=== PATIENT | female | born 1980 | race Hispanic/Latino ===

== ENCOUNTER 2019-08-15 15:27 | Emergency (ER) | payer SELFPAY ==
[~2019-08-15] VITALS: Ht 165.1 cm; Wt 72.6 kg
[~2019-08-15 15:27] MED LIST: ADVIL200 MG PO; MOTRIN IB200 MG PO; PERCOCET 5-3251 EACH PO; PROCARDIA XL60 MG PO
[2019-08-15] MEDS ORDERED: PROMETHAZINE HC25 M1 PO (17:17)
== END 2019-08-15 17:34 | disposition home or self-care (01) ==
LOC: ED 15:27
DX: B34.9 Viral infection, unspecified (principal); R42 Dizziness and giddiness; Z91.041 Radiographic dye allergy status; Z88.0 Allergy status to penicillin
CPT/HCPCS: 80053; 84703; 85025; 96361; 96374; 99284-25; J2405; J7030

== ENCOUNTER 2019-12-22 19:21 | Emergency (ER) | payer SELFPAY ==
[~2019-12-22] VITALS: Ht 165.1 cm; Wt 72.6 kg
[~2019-12-22 19:21] MED LIST changes: +PROMETHAZINE HC25 M1 PO
[2019-12-22] MEDS ORDERED: PERCOCET 5-3251 EACH PO (21:40)
[2019-12-22] MEDS ORDERED: FLOMAX0.4 MG PO (21:40)
[2019-12-22] MEDS ORDERED: ONDANSETRON ODT8 MG PO (21:40)
== END 2019-12-22 22:05 | disposition home or self-care (01) ==
LOC: ED 19:21
DX: N13.2 Hydronephrosis with renal and ureteral calculous obstruction (principal); Z88.5 Allergy status to narcotic agent; Z88.8 Allergy status to other drugs, medicaments and biological substances; Z88.0 Allergy status to penicillin
CPT/HCPCS: 51701; 74176; 80053; 81001; 84703; 85025; 86900; 86901; 99284-25; J1170; J2405; J7030

== ENCOUNTER 2019-12-24 20:43 | Emergency (ER) | payer SELFPAY ==
[~2019-12-24] VITALS: Ht 165.1 cm; Wt 72.6 kg
[~2019-12-24 20:43] MED LIST changes: +FLOMAX0.4 MG PO; +ONDANSETRON ODT8 MG PO
--- OUTSIDE RECORDS SUMMARY | 2019-12-24 20:46 | XMS ---
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 Yared has no Care Guidelines for this patient. [place] VISIT COUNT (12 MO.) 3 [facility] [place]. TOTAL 3 NOTE: Visits indicate total known visits. ED/C VISIT TRACKING (12 MO.) 12/24/2019 20:44 [facility] [place] TYPE: Emergency COMPLAINT: - ABDOMINAL PAIN 12/22/2019 19:22 [facility] [place] TYPE: Emergency COMPLAINT: - ABDOMINAL PAIN/WEAKNESS 08/15/2019 15:28 [facility] [place] TYPE: Emergency COMPLAINT: - DIZZINESS DIAGNOSES: - Radiographic dye allergy status - Viral infection, unspecified - Dizziness and giddiness - Allergy status to penicillin INPATIENT VISIT TRACKING (12 MO.) No inpatient visits to display in this time frame [email or web address]
[2019-12-25] MEDS ORDERED: CEFPODOXIME PR200 MG PO (01:55)
== END 2019-12-25 02:26 | disposition home or self-care (01) ==
LOC: ED 20:43
DX: N12 Tubulo-interstitial nephritis, not specified as acute or chronic (principal); G43.909 Migraine, unspecified, not intractable, without status migrainosus; Z88.5 Allergy status to narcotic agent; Z88.0 Allergy status to penicillin; Z88.8 Allergy status to other drugs, medicaments and biological substances; Z79.899 Other long term (current) drug therapy
CPT/HCPCS: 74177; 80053; 81001; 83605; 83690; 83735; 84703; 85025; 96361; 99284-25; J0696; J1200; J1885; J2765; J7030; Q9967

== ENCOUNTER 2020-04-27 15:32 | Emergency (ER) | payer SELFPAY ==
[~2020-04-27] VITALS: Ht 165.1 cm; Wt 72.6 kg
[~2020-04-27 15:32] MED LIST changes: +CEFPODOXIME PR200 MG PO
== END 2020-04-27 18:12 | disposition home or self-care (01) ==
LOC: ED 15:32
DX: S00.83XA Contusion of other part of head, initial encounter (principal); Y04.8XXA Assault by other bodily force, initial encounter; Z88.8 Allergy status to other drugs, medicaments and biological substances; Z88.5 Allergy status to narcotic agent; Z88.0 Allergy status to penicillin
CPT/HCPCS: 70450; 72125; 80053; 81001; 84703; 85025; 96374; 99284-25; J1885

== ENCOUNTER 2020-10-11 02:07 | Emergency (ER) | payer SELFPAY ==
[~2020-10-11] VITALS: Ht 165.1 cm; Wt 72.6 kg
== END 2020-10-11 05:10 | disposition home or self-care (01) ==
LOC: ED 02:07
DX: R10.30 Lower abdominal pain, unspecified (principal); G43.909 Migraine, unspecified, not intractable, without status migrainosus; Z88.5 Allergy status to narcotic agent; Z88.0 Allergy status to penicillin
CPT/HCPCS: 51701; 74176; 80053; 81001; 83690; 84703; 85025; 99284-25

== ENCOUNTER 2021-08-16 09:48 | Inpatient (IN) | payer OTHER ==
[~2021-08-16] VITALS: Ht 165.1 cm; Wt 81.0 kg
--- NOTE | 2021-08-16 19:20 | NUR ---
BEDSIDE REPORT RECEIVED FROM OFFGOING RNDAPHNIE. TOOL HONING MACHINE SET UP OPERATOR AT BEDSIDE. ACTUARIAL TECHNICIAN WAITING TO SEE PT. CALL LIGHT IN PT'S REACH. NEEDS DENIED.
--- NOTE | 2021-08-16 19:31 | NUR ---
Patient arrived to the medical floor from ED department. Patient awake, alert and oriented x4. Patient reports lower back pain, 9/10. Vital signs taken at this time, oral temp down to 99.3f. Patient provided with dinner at this time. Oriented patient to room and call light.
--- NOTE | 2021-08-16 19:34 | NUR ---
Dr. Villalobos updated with the most recent positive toxicology results. No new orders obtained at this time.
--- NOTE | 2021-08-16 20:05 | NUR ---
BED ALARMING. THIS SEARCH ENGINE MARKETING STRATEGIST WENT IN TO THE ROOM PATIENT WAS SITTING ON THE TOILET STATED "I NEED TO PEE". PATIENT IS BACK IN BED. V/S AND I&O'S TAKEN AND CHARTED. CALL LIGHT AND SIDE TABLE WITHIN REACH. BED ALARM ON.
--- NOTE | 2021-08-16 20:13 | NUR ---
SHOE SEWING MACHINE OPERATOR AND TENDER WAS AWARE OF THE PATIENT'S TEMP.
--- NOTE | 2021-08-16 22:39 | NUR ---
PT UTLIZES CALL LIGHT, REQUESTS PRN PAIN MEDCIATION. PT ASSESSMENT COMPLETE. PT RATES PAIN 10/10 TO BACK AND HEADACHE. PRN ADMINISTERED, SEE EMAR. PT DENIES NAUSEA OR SOB. ABD TENDER TO PALPATION. BT'S ACTIVE. IV FLUSHED WITH 10 ML NS. WNL. ICE WATER REFILLED. PT VERY DROWSY AFTER PAIN MEDCIATION ADMINISTERED. PT DENIES FURTHER NEEDS. CALL LIGHT IN REACH. BED ALARM ACTIVE.
--- NOTE | 2021-08-17 00:28 | NUR ---
PT RESTING IN BED WITH EYES CLOSED. RESPIRATIONS EVEN AND UNLABORED. PT APPEARS TO BE SLEEPING. CALL LIGHT IN REACH.
--- NOTE | 2021-08-17 01:20 | NUR ---
PT ASSESSMENT COMPLETE. PT UP TO BATHROOM AND BACK TO BED WITH SBA. PT TOLERATED WELL. RATES PAIN 7/10 TO ABD, SLIGHT HEADACHE. ABD TENDER TO PALPATION. BT'S ACTIVE. IVF INFUSING ORDERED. PT PROVIDED WITH ROCK HUDDLE[place]ON PERREQUEST. FURTHER NEEDS DENIED AT THIS TIME. CALL LIGHT IN REACH.
--- NOTE | 2021-08-17 02:29 | NUR ---
PT UTILIZES CALL LIGHT, REQUESTS PRN PAIN MEDICATION. PT REPORTS PAIN 7/10 TO ABD, ALSO REPORTS HEADACHE. PRN ADMINISTERED, SEE EMAR. PT DENIES FURTHER NEEDS AT THIS TIME. CALL LIGHT IN REACH.
--- NOTE | 2021-08-17 03:17 | NUR ---
PT RESTING IN BED WITH EYES CLOSED. RESPIRATIONS EVEN AND UNLABORED. PT APPEARS TO BE SLEEPING. CALL LIGHT IN REACH.
--- NOTE | 2021-08-17 06:38 | NUR ---
PT UTILIZES CALL LIGHT, REQUESTS TO USE BATHROOM AND FOR ADDITIONAL PAIN MEDICATION. PT RATES PAIN 10/10 TO PELVIS AND REPORTS HEADACHE. PT ADMINISTERED. PT UP TO BATHROOM AND BACK TO BED WITH LIGHT BULB TESTER ASSISTANCE. BLOOD DRAW OBTAINED FROM PERIPHERAL IV, PT REFUSES TO HAVE BLOOD DRAWN. PT DENIES FURTHER NEEDS AT THIS TIME. PT RESTING SNORING AUDBILY AUTOMOTIVE SERVICE DIRECTOR EXITS ROOM. CALL LIGHT INR EACH.
--- NOTE | 2021-08-17 06:39 | NUR ---
URINE SAMPLE SENT.
--- NOTE | 2021-08-17 07:22 | NUR ---
REPORT FROM NIGHT NURSE KRYSTIN.
--- NOTE | 2021-08-17 08:30 | NUR ---
NORMAN DO INTO EVALUATE PT. HEART TONES BY DOPPLER 170'S. MOVEMENT HEARD BY DOPPLER.
--- NOTE | 2021-08-17 09:07 | NUR ---
MORNING ASSESSMENT ATTEMPTED, PATIENT ANNOYED THAT LIGHT WAS ON FOR ASSESSMENT, LIGHT TURNED OFF. PATIENT RATED HEADACHE 7/10 AND ATTRIBUTES THIS TO MAGNESIUM AND POTASSIUM REPLACEMENT. IVF TURNED OF, PATIENT IS MAD THAT THE IV PUMP BEEPS AND WILL NOT KEEP HER ARM STRAIGHT. PATIENT TOOK MORNING ASPRIN AND VITAMIN, REFUSED LOVENOX, FLOMAX AND PEPCID, SAYING, "THOSE THINGS ARE STUPID." PLAN TO INFUSE ROCEPHIN AT NOON IF PATIENT IS WILLING.
--- NOTE | 2021-08-17 09:46 | NUR ---
PATIENT GIVEN 1MG OF IV DILAUDID FOR 10/10 HEADACHE. PATIENT REFUSED PERCOCET, KNOWS THAT MORPHINE IS AVAILABLE BUT DECLINED TO TAKE IT AT THIS TIME.
--- NOTE | 2021-08-17 10:21 | NUR ---
PATIENT IN BED RESTING WITH EYES CLOSED. VITALS AND I&O'S CHARTED. TEMP HIGH, RN NOTFIIED. CALL LIGHT IN REACH. NO FURTHER NEEDS AT THIS TIME.
--- NOTE | 2021-08-17 10:37 | NUR ---
PATIENT RESTING IN BED. PATIENT AGREED TO TAKE PO MAGNESIUM WITH A DOSE OF IMITREX. PATIENT CONTINUES TO REFUSE IVF
--- NOTE | 2021-08-17 11:17 | NUR ---
PATIENT TO GO TO IMAGING FOR RETROPERITONEAL ULTRASOUND. PATIENT CONTINUES TO BE SALINE LOCKED.
--- NOTE | 2021-08-17 12:07 | NUR ---
PATIENT IS OKAY WITH IVF/ROCEPHIN ABX INFUSING AT THIS TIME. PATIENT REPORTED RESOLUTION OF HEADACHE. PATIENT IMMEDIATELY BACK TO SLEEP.
--- NOTE | 2021-08-17 14:08 | NUR ---
PATIENT UP TO BATHROOM TO VOID WITH SBA, GIVEN ONE PERCOCET FOR 6/10 HEADACHE. PATIENT ATE 20% OF LUNCH AND BACK TO BED.
--- NOTE | 2021-08-17 14:17 | NUR ---
PATIENT IN BED RESTING WITH EYES CLOSED. VITALS AND I&O'S CHARTED. CALL LIGHT IN REACH. NO FURTHER NEEDS AT THIS TIME.
--- NOTE | 2021-08-17 14:59 | NUR ---
PATIENT GIVEN 1MG OF IV DILAUDID FOR 6/10 LEFT SIDE PAIN. PATIENT HAS BEEN COMPLIANTE WITH MEDICATIONS AND IVF THIS AFTERNOON.
--- NOTE | 2021-08-17 16:43 | NUR ---
PATIENT IS RESTING IN BED, REPORTS THAT SHE IS COMFORTABLE AT THIS TIME.
--- NOTE | 2021-08-17 17:22 | NUR ---
PATIENT HAS DONE WELL TODAY, INITIALLY RESISTANT AND REFUSING SOME TREATMENTS THIS MORNING. THIS EVENING, HER PAIN IS UNDER CONTROL, APPETITE IS ADEQUATE, PATIENT HAS BEEN APPROPRIATE IN HER INTERACTIONS. HEART TONES DONE THIS MORNING BY C NURSE. PATIENT HAS USED CALL LIGHT AND RESTED IN BED THROUGHOUT THE DAY.
--- NOTE | 2021-08-17 18:12 | NUR ---
PATIENT GIVEN TWO TYLENOL AND IMITREX FOR 10/10 HEADACHE.
--- NOTE | 2021-08-17 18:25 | NUR ---
PATIENT IN BED RESTING WITH EYES CLOSED. VITALS AND I&O'S CHARTED. FRESH WATER GIVEN. CALL LIGHT IN REACH. NO FURTHER NEEDS AT THIS TIME.
--- NOTE | 2021-08-17 20:09 | NUR ---
PT ASSESSMENT COMPLETE. PT UTILIZES CALL LIGHT, REQUESTS PRN PAIN MEDICATION. SURTASS ANALYST TO ROOM PT REQUESTS TO USE THE BATHROOM. PT TO BATHROOM AND BACK TO BED WITH SBA. PT BEGINS LOUDLY COMPLAINING OF PAIN TO RAC IV SITE. STATES THAT THE NEEDLE IS PULLING OUT OF HER ARM. EDUCATION PROVIDED REGARDING IV. PT YELLING THAT SHE DOESN'T CARE. SHE WANTS THE IV DC'D. IV DC'D BY THIS SURTASS ANALYST AT THIS TIME. L AC IV FLUSHED WITH 10 ML NS. GOOD BLOOD RETURN NOTED. PT RATES PAIN 10/10 HEADACHE AND PELVIC PAIN. PRN ADMINISTERED, SEE EMAR. PT DENIES NAUSEA OR SOB. ABD TENDERNESS UPON PALPATION. BT'S ACTIVE. PT REQUESTS ICE AND ROCK CRACKERS. PT DENIES FURTHER NEEDS AT THIS TIME. RESTING WITH EYES CLOSED. CALL LIGHT IN REACH.
--- NOTE | 2021-08-17 21:44 | NUR ---
CALL LIGHT ANSWERED. SBA TO RESTROOM FOR VOID. pt VERBALIZES UNDERSTANDING TO USE CALL LIGHT WHEN FINISHED.
--- NOTE | 2021-08-17 22:42 | NUR ---
CALL LIGHT ANSWERED. SBA TO RESTROOM. IVF INFUSING WNL. pt STATES WILL USE CALL LIGHT WHEN FINISHED.
--- NOTE | 2021-08-18 00:16 | NUR ---
PT UTILIZES CALL LIGHT MULTIPLE TIMES REQUESTING PRN PAIN MEDCIATION. ADMINISTERED AT EARLIEST AVAILABILITY. MED EDUCATION PROVIDED. PT RATES PAIN 10/10 TO HEADACHE, PELVIS, AND BACK. ICE WATER REFILLED PER PT REQUEST. PT DENIES FURTHER NEEDS AT THIS TIME. CALL LIGHT IN REACH.
--- NOTE | 2021-08-18 02:06 | NUR ---
pt HEARD YELLING FROM NURSES STATION. USING CALL LIGHT STATING "THIS STUPID MEDICATION DOESN'T WORK". IN ROOM WITH PRIMARY RN. pt STATES "I'M ABOUT TO WALK OUT OF HERE AND GO BACK TO THE ER". EDUCATION PROVIDED ON PO PAIN MEDICATIONS, PLAN OF CARE. TEMPERATURE IN ROOM ADJUSTED. URINE EMPTIED FROM HAT. CPOX IN PLACE. PRIMARY RN IN ROOM ADMINISTERING MEDICATION.
--- NOTE | 2021-08-18 02:48 | NUR ---
PT ASSESSMENT COMPLETE. PT UTILIZES CALL LIGHT, STATES THAT SHE WANTS TO SPEAK TO THE DOCTOR. REPORTS THAT HER PAIN MEDICATION IS INEFFECTIVE. AUTO PARKER AND COOK HELPER TO ROOM. MEDICATION EDUCATION PROVIDED. MEDICATION TIMING AND AVAILABILITY DISCUSSED. PRN ADMINISTERED, SEE EMAR. PT RATES PAIN, HEADACHE, 10/10. OFFERED COOL AND/OR WARM COMPRESS. PT DECLINES. DISCUSSION REGARDING CAFFIENE RELATED HEADAHCES, PT REQUESTS COFFEE. PROVIDED. PT DENIES FURTHER NEEDS AT THIS TIME. CALL LIGHT IN REACH.
--- NOTE | 2021-08-18 02:56 | NUR ---
PT ROUNDING. PT UP TO BATHROOM WITH CROSSING FLAGMAN ASSISTANCE. PT REPORTS THAT HEADACHE IS IMPROVED AT THIS TIME. REQUESTS ADDITIONAL COFFE AND ICE CHIPS. FURTHER NEEDS DENIED AT THIS TIME. CALL LIGHT IN REACH.
--- NOTE | 2021-08-18 03:00 | NUR ---
SBA TO THE BATHROOM AND BACK TO BED. ICE WATER AND COFFEE PROVIDED PER PATIENT. NO OTHER NEEDS AT THIS TIME.
--- NOTE | 2021-08-18 07:00 | NUR ---
Report received from Liliana ESPARZA. Pt calls and requests "something for headache". ISAIAS Ford medicates with PRN percocet. No further needs at this time. Call light in reach, will continue plan of care.
--- NOTE | 2021-08-18 08:05 | NUR ---
Scheduled medications administered along with PRN IV dilaudid. Pt cooperative with care plan at this time. IVF infusing WNL. Assessment complete. FBC ISAIAS Rodriguez in room to assess FHR. Dr Villalobos also at bedside to round on patient. No further needs at this time, call light in reach.
--- NOTE | 2021-08-18 08:16 | NUR ---
NORMAN DO AT BEDSIDE WITH THIS RN. HEART TONES BY DOPPLER 160 BPM.
--- NOTE | 2021-08-18 09:06 | NUR ---
PATIENT IN BED AT THIS TIME GOING OVER MRI FORM WITH CHARGE NURSE. VITALS AND I&O'S CHARTED. CALL LIGHT IN REACH. NO FURTHER NEEDS AT THIS TIME.
--- NOTE | 2021-08-18 10:18 | NUR ---
Rounded on patient who is resting in bed, she states no needs, states "feeling hot", temperature in room adjusted and fan provided. No further needs. IVF infusing WNL. NPO at this time awaiting procedure at 1300.
--- NOTE | 2021-08-18 11:07 | NUR ---
Call light answered, pt assisted SBA to restroom. IVF infusing WNL. Pt reports 07/21 "head/eye ache", PRN imitrex administered. Pt states no further needs. Calm and cooperative with POC. Lights dim, call light in reach.
--- NOTE | 2021-08-18 12:27 | NUR ---
Pt medicated with PRN dilaudid and IV ABX infusing. Pt states no needs at this time. Call light in reach.
--- NOTE | 2021-08-18 13:10 | NUR ---
PATIENT TO MRI AT 1300.
--- NOTE | 2021-08-18 14:45 | NUR ---
IVF infusing WNL. Pt resting in bed watching tv. She states no needs at this time, feeling "okay". Call light in reach.
--- NOTE | 2021-08-18 14:50 | NUR ---
IV pump alarming, resolved, attempted wrapping with cloth/coban to prevent bending in AC
--- NOTE | 2021-08-18 16:55 | NUR ---
Pt assisted to restroom with SBA. IVF infusing WNL. Pt states no needs at this time, feeling "tired". Call light in reach
--- NOTE | 2021-08-18 17:20 | NUR ---
Pt medicated with 1mg dilaudid for 6/10 pain. Pt sitting up in bed eating dinner. Discussed POC with Dr Villalobos.
--- NOTE | 2021-08-18 17:32 | NUR ---
Dr. Villalobos in to see patient, patient will need IV antibiotics for 10 days, discussed with Dr. Villalobos that patient has said that she would go into a center where she could be in a drug free environment. Dr. Villalobos in agreement with this plan, will start working on placement options with Dr. Villalobos per his recommendations and patient tomorow.
--- NOTE | 2021-08-18 17:53 | NUR ---
Pain managed well this shift. MRI shows renal mass- Dr Villalobos anticipates +/- 10 days of IV ABX. Awaiting new orders. tolerating regular diet. HRR, LSC, BTA, VQS. Pt A+O, calls appropriately today. CM working with patient for potential inpatient rehab tx post DC.
--- NOTE | 2021-08-18 19:56 | NUR ---
RECEIVED REPORT FROM DAY SHIFT RN. PATIENT IS RESTING IN BED WITH EYES CLSOED, RR 18. CALL LIGHT IN REACH.
--- NOTE | 2021-08-18 20:25 | NUR ---
CALL LIGHT ANSWERED. SBA. PATIENT GOT UP TO USE THE RESTROOM. PATIENT IS BACK IN BED. PATIENT ASKED FOR SNACK ROCK CRACKERS AND ORANGE JUICE. PROVIDED.
--- NOTE | 2021-08-18 21:05 | NUR ---
PATIENT ASSESMENT COMPLETED. VITALS TAKEN AND RECORDED. INTAKE AND OUTPUT RECORDED. PATIENT RATES PAIN AT AN 8/10 IN HER LOWER BACK, PRN PAIN MEDICATION GIVEN PER ORDER. PATIENT REPORTS DUGAN, PRN MEDICATION GIVEN PER ORDER. PATIENTS IV INFUSING PER ORDER. SNACK AND FRESH ICE WATER PROVIDED. PATIENT DENIES ANY FURTHER NEEDS. CALL LIGHT IN REACH.
--- NOTE | 2021-08-18 22:31 | NUR ---
PATIENT UP TO THE RESTROOM. PATIENT ABLE TO VOID. PATIENT IS BACK IN BED RESTING. IV INFUSING PER ORDER. PATIENT RATES PAIN AT A 5/10, AND DENIES THE NEED FOR INTERVENTION AT THIS TIME. PATIENT STATED "MY HEADACHE IS GONE AND MY PAIN IS IMPORVING". PATIENT DENIES ANY FURTHER NEEDS. CALL LIGHT IN REACH.
--- NOTE | 2021-08-18 23:29 | NUR ---
PATIENT UP TO THE BR A SBA. PATIENT IS BACK IN BED RESTING. SNACK PROVIDED. NO FURTHER NEEDS NOTED. CALL LIGHT IN REACH.
--- NOTE | 2021-08-19 00:26 | NUR ---
call light answered. sba to bathroom and back to bed. warm blanket provided. primary rn notified patient asked the time she can have pain meds.
--- NOTE | 2021-08-19 00:46 | NUR ---
PATIENT RATES PAIN AT A 7/10 IN HER LOWER BACK. PRN PAIN MEDICATION GIVEN PER ORDER. FRESH ICE WATER PROVIDED. NO FURTHER NEEDS NOTED. CALL LIGHT IN REACH.
--- NOTE | 2021-08-19 01:23 | NUR ---
PATIENT RATES PAIN AT A 10/10, PRN PAIN MEDICATION GIVENT PER ORDER. PATIENT IS RESTING IN BED. OFFERED PATIENT WARM PACK, Pt REFUSED. PATIENT DENIES ANY FURTHER NEEDS. CALL LIGHT IN REACH.
--- NOTE | 2021-08-19 03:07 | NUR ---
PATIENT CALLED TO USE THE RESTROOM. SBA. PATIENT IS BACK IN BED. COFFEE AND ROCK CRACKERS PROVIDED PER PATIENT.
--- NOTE | 2021-08-19 05:09 | NUR ---
PATIENT RATES PAIN AT A 7/10 IN HER LEFT FLANK AND REPORTS A HEADACHE. PRN MEDICCATION GIVEN PER ORDER. PATIENTS IV FLUSHED AND SL PER ORDER. VITALS TAKEN AND RECORDED. INTAKE AND OUTPUT RECORDED. PATIENT PROVIDED WITH FRESH ICE WATER. NO FURTHER NEEDS NOTED. CALL LIGHT IN REACH.
--- NOTE | 2021-08-19 06:00 | NUR ---
LAB IN ROOM. PATIENT IS YELLING "GET OUT". ATTEMPTED TO DRAW BLOOD FROM PATIENTS IV WITH NO BLOOD RETURN. EDUCATED PATIENT ON THE IMPORTANCE OF SENDING BLOOD TO THE LAB. PATIENT STATED "I DONT FUCKING CARE, I DONT WANT MY BLOOD TAKEN BY RETARDS". PATIENT EDUCATED THAT WE DO NOT CALL NAMES AND THAT IT IS NOT OK TO YELL AT STAFF. UNABLE TO DRAW LABS AT THIS TIME.
--- NOTE | 2021-08-19 06:52 | NUR ---
PATIENT GIVEN PRN PAIN MEDICATION FOR 7/10PAIN IN HER LEFT FLANK. PATIENTS BLOOD DRAWN AND SENT TO LAB. NO FURTHER NEEDS NOTED. CALL LIGHT IN REACH.
--- NOTE | 2021-08-19 07:00 | NUR ---
Report received from Kushal ESPARZA. Pt resting in bed with cloth over eyes. Resp even and unlabored. No needs identified at this time, call light in reach. Will continue plan of care.
--- NOTE | 2021-08-19 08:18 | NUR ---
Discussed pt medications with Dr Villalobos, no changes at this time
--- NOTE | 2021-08-19 08:26 | NUR ---
Scheduled medications administered and assessment complete. Pt resting in bed with eyes closed. Pt ambulates IND to BR to void. She states no needs at this time. Pt updated regarding POC and is agreeable. Assessment WNL. Call light in reach.
--- NOTE | 2021-08-19 12:00 | NUR ---
Scheduled ABX infusing. Pt agitated at this time, and she states that "wants to go home, how much longer do I have to be here", plan of care reviewed and pt continues to be irritable. She states she wants to "go home and take a bath and walk around", encouraged to shower and walk in hallway with this RN. Pt medicated with prn percocet and imitrex, she is agreeable to staying in hospital at this time. Dr Villalobos updated as well on pt condition and new orders for PRN flexeril received.
--- NOTE | 2021-08-19 13:00 | NUR ---
Pt medicated with PRN dilaudid. IV ABX complete. She is calm and cooperative at this time. No further needs.
--- NOTE | 2021-08-19 13:53 | NUR ---
HEART TONES BY DOPPLER: 149-162 BPM. PT RESTS IN BED. NO PAIN OR NEEDS VOICED.
--- NOTE | 2021-08-19 15:31 | NUR ---
Patient requesting that we have someone go to her residence at [address], [place] to go and turkey picker her cell phone and her purse and bring it to the hospital. Contacted [place] police and provided name and address. They stated that this is out of their jurisdiction and referred me to the [facility], I have spoken with staff at the [facility], and provided the information. They have stated that they will relay the message and get back to us. I did leave them the phone number for case management office.
--- NOTE | 2021-08-19 16:39 | NUR ---
Walked with patient to outside patio for fresh air, walked in hallway. Fresh ice water provided. Pt back to room and states no needs.
--- NOTE | 2021-08-19 17:11 | NUR ---
Discussed updated POC with Dr Marino and Dr Villalobos.
--- NOTE | 2021-08-19 17:48 | NUR ---
One time dose IV rocephin administered, pt agreeable, has no needs at this time
--- NOTE | 2021-08-19 18:31 | NUR ---
Dr Cabello roundjodie on patient, updated on patient condition and discussed POC.
--- NOTE | 2021-08-19 19:40 | NUR ---
fresh fluids given on requests, in bed respositionned
--- NOTE | 2021-08-19 20:00 | NUR ---
warm pad for back given, walking in room, went back to bed. respositioned self, no requests for meds at this time
--- NOTE | 2021-08-19 20:30 | NUR ---
@2020 THIS RM ANSWERED PT CALL LIGHT, SHE WAS YELLING, I NEED MY FUCKING NURSE, I NEED MY PAIN MEDICATIONS, I HAVE BEEN CALLING FOR OVER AN HOUR, I AM LEAVING, THIS RN HEARING SOUNDS OF INCREASED NOISE IN THE ROOM. TOLD PT I AM ON THE WAY, SHE REPLIED I AM LEAVING. THIS RN TO ROOM BY 2021, PT DRESSED, SIGNS OF SL DESTRUCTION NOTED IN THE ROOM, PT YELLING, VERY EXCITEDLY TALKING RAPID I AM LEAVING, TAKE THIS IV OUT, OR "I WILL". ENCOURAGED PT TO ALLOW THIS RN TO GET HER PRIMARY RN. PT SAT ON THE CHAIR. REYES AND THIS RN TO PT ROOM, HOWEVER, SHE WAS NEARLY TO THE CARPET TOWARD [facility] IV INTACT. REYES RAN TO PT, WHILE THIS RN CALLED MILLSTONE CLEANER @2024.
--- NOTE | 2021-08-19 20:30 | NUR ---
pt walked out of room, fully dressed, wound not stop when called, walked outside and asked to come back to dc iv SL. cooperative, increaed anxiety, hyperverbal, fidgetty. Documentation Coordinator came and talk to pt when she got back inside and sat down by fireplace. SL dc'd by supervisor costuming. Pt refised to sign AMA form, walked out, alert and oriented
--- NOTE | 2021-08-19 20:33 | NUR ---
dr jeffrey notified via phone by leather products supervisor about pt not listening, agitation, screaming and not wanting to stay even after many explanations. and leaving AMA, refusing to sign form
--- NOTE | 2021-08-22 10:33 | HP ---
[facility] [address], [place] [address] Signed ADMISSION DATE: 08/16/2021 CHIEF COMPLAINT: Left lower quadrant pain in . HISTORY OF PRESENT ILLNESS: Ms. Sepulveda is a 40-year-old G6, P4, x4 female, who presented to the emergency department complaining of low back pain. LMP March 28 with no care. She is planning on seeing Dr. Joseph for her . history is complicated by x4, history of severe preeclampsia with delivery at 29 weeks in her last and methamphetamine use in the past reportedly. The patient reports that she developed [place] two [place] that progressed in severity. Yesterday, she felt unwell and painful and this morning presented to the emergency department. Reports left lower quadrant pain radiating to her flank down to her groin and down her leg. She reports no vaginal discharge, scant amount of spotting yesterday. She reports no gross hematuria. In the emergency department, she developed a fever of 102.9, but was initially afebrile. Again, she has had no care to this point. PAST MEDICAL HISTORY: 1. History of severe preeclampsia with delivery at 29 weeks in her last . 2. Chronic hypertension, not currently on any medications. 3. History of methamphetamine use with overdose in February of 2021. PAST SURGICAL HISTORY: x4. MEDICATIONS: None. ALLERGIES: Penicillin, rash. Codeine, hives. SOCIAL HISTORY: The patient denies ETOH, tobacco, or drug use. FAMILY HISTORY: Noncontributory. PHYSICAL EXAMINATION: VITAL SIGNS: T-max 102.9, pulse 109, respiratory rate 29, blood pressure 154/93, SaO2 Electronically Signed By: KATT NORMAN DO 08/22/21 1033 PATIENT NAME: CHERI SEPULVEDA HISTORY AND PHYSICAL DATE OF : 76 REPORT #: [id number] PHYSICIAN: KATT NORMAN DO PCP: NO PRIMARY CARE PHYSICIAN REPORT IS CONFIDENTIAL AND NOT TO BE RELEASED WITHOUT AUTHORIZATION [facility] [address], [place] [address] Signed 98%. GENERAL: The patient is a 40-year-old female lying in hospital bed. Appears older than stated age. She appears in some discomfort lying on her left side. HEENT: Normocephalic, atraumatic. NECK: Supple. Trachea midline with no lymphadenopathy or thyromegaly. HEART: Regular rate and rhythm with borderline tachycardia with no murmurs or rubs. LUNGS: Clear to auscultation bilaterally. ABDOMEN: Soft, nondistended, with gravid uterus palpated just above the pubic symphysis. There is significant discomfort just above the pubic symphysis, but no guarding or rebound in the other quadrants. There is significant flank pain to percussion on the left. Pelvic deferred. EXTREMITIES: No edema. Ultrasound demonstrates IUP at 15 weeks two days with a heart rate of 189 and cervical length 3.5 cm with an anterior placenta. EKG normal. WBCs 7.2, hemoglobin 10.8, platelets 142. Sodium 132, potassium 3.0, chloride 100, CO2 of 25, BUN 6, creatinine 0.62, glucose 152, lactic acid 1.6, AST 19, ALT 20, quant hCG 39,684. Urine demonstrates proteinuria, blood, leuk esterase but no nitrites. Urine also demonstrates amorphous crystals and bacteria. Urine and blood cultures pending. Toxicology screen positive for opioids, which could represent morphine which was given in the emergency department but is also positive for methamphetamine and marijuana. She is negative for coronavirus, influenza A and B and RSV. ASSESSMENT: 1. Intrauterine at 15 weeks gestation. 2. Pyelonephritis status post Rocephin in the emergency department. 3. Nephrolithiasis with amorphous crystals on urine microscopy. 4. History of severe preeclampsia. 5. History of x4. 6. Methamphetamine use. PLAN: We will admit the patient to Med-Surg for care of her pyelonephritis and nephrolithiasis. We will check A1c, urine protein creatinine ratio and labs. We will start ASA 162 mg p.o. daily as well as vitamins given her history of and history of severe preeclampsia. Chest x-ray was ordered despite her status due to tachypnea. The patient will receive Rocephin q. 24 hours until afebrile, and then we will anticipate discharge home on oral antibiotics with close followup with Dr. Joseph. We will also treat nephrolithiasis with Flomax 0.4 mg p.o. daily, IV fluids, half-normal saline with 20 mEq of potassium with hypokalemia noted on her labs as well as opioids for pain control. We will perform daily Dopplers to assure viability. We will coordinate NIPT and remainder of routine care. All Electronically Signed By: KATT NORMAN DO 08/22/21 1033 PATIENT NAME: CHERI SEPULVEDA HISTORY AND PHYSICAL DATE OF : 76 REPORT #: [id number] PHYSICIAN: KATT NORMAN DO PCP: NO PRIMARY CARE PHYSICIAN REPORT IS CONFIDENTIAL AND NOT TO BE RELEASED WITHOUT AUTHORIZATION [facility] [address] [place] [address] Signed questions were answered to the best of my ability and the patient's apparent satisfaction. DO LANDY Lewis/JEM /[id number] Copies: ~ Electronically Signed By: KATT NORMAN DO 08/22/21 1033 PATIENT NAME: CHERI SEPULVEDA HISTORY AND PHYSICAL DATE OF : 76 REPORT #: [id number] PHYSICIAN: KATT NORMAN DO PCP: NO PRIMARY CARE PHYSICIAN REPORT IS CONFIDENTIAL AND NOT TO BE RELEASED WITHOUT AUTHORIZATION
== END 2021-08-19 20:30 | disposition left against medical advice (07) | DRG 831 ==
LOC: ED 09:48 → MS 18:31
PROVIDERS: ADMIT Obstetrics & Gynecology; ATTEND Obstetrics & Gynecology
DX: O98.812 Other maternal infectious and parasitic diseases complicating pregnancy, second trimester (principal); A41.51 Sepsis due to Escherichia coli [E. coli]; O23.02 Infections of kidney in pregnancy, second trimester; O99.322 Drug use complicating pregnancy, second trimester; Z20.822 Contact with and (suspected) exposure to COVID-19; Z3A.15 15 weeks gestation of pregnancy; N20.0 Calculus of kidney; E87.6 Hypokalemia; R51.9 Headache, unspecified; O99.282 Endocrine, nutritional and metabolic diseases complicating pregnancy, second trimester; F15.10 Other stimulant abuse, uncomplicated; Z88.0 Allergy status to penicillin; Z88.5 Allergy status to narcotic agent; Z88.8 Allergy status to other drugs, medicaments and biological substances
CPT/HCPCS: 36415; 71045; 74183; 76770; 76815; 76817; 80048; 80053; 81001; 82570; 83605; 84156; 84702; 85025; 85027; 86762; 86780; 86803; 86850; 86900; 86901; 87040; 87088; 87340; 87502; 87536; 93005; 93010; 94762; 96361; 96365; 96375; 96376; 99285-25; A9270; A9579; C9803; J0696; J1170; J1650; J2270; J3480; J7030; U0003

== ENCOUNTER 2022-02-02 04:30 | Inpatient (IN) | payer OTHER ==
[~2022-02-02] VITALS: Ht 165.1 cm; Wt 101.0 kg
--- NOTE | ~2022-02-02 | OR ---
[facility] [address] [place], [place] [address] Draft DATE OF OPERATION: 02/02/2022 SURGEON: Katt Villalobos DO PREOPERATIVE DIAGNOSES: 1. Intrauterine at 39 weeks gestation. 2. History of prior x4. 3. Preeclampsia with severe features with HELLP syndrome. 4. Noncompliance. 5. Thrombocytopenia. POSTOPERATIVE DIAGNOSES: 1. Intrauterine at 39 weeks gestation. 2. History of prior x4. 3. Preeclampsia with severe features with HELLP syndrome. 4. Noncompliance. 5. Thrombocytopenia. 6. Intraoperative hypotension. PROCEDURE PERFORMED: Repeat low transverse delivery with bilateral tubal ligation. ANESTHESIA: General. ASSISTANTS: Lawson Joseph MD with Heather Scott DO, second machine operator assistant. ESTIMATED BLOOD LOSS: 400 mL. INTRAOPERATIVE COMPLICATIONS: Hypotension requiring vasopressin and epinephrine. DRAINS: Sosa to gravity. INTRAOPERATIVE FINDINGS: Delivery of viable female in the JODEE position with no nuchal via repeat low transverse section with thick particulate meconium. Very thin lower uterine PATIENT NAME: CHERI SUTTON OPERATIVE REPORT DATE OF : 76 REPORT #: [id number] PHYSICIAN: KATT VILLALOBOS DO (JD) PCP: NO PRIMARY CARE PHYSICIAN REPORT IS CONFIDENTIAL AND NOT TO BE RELEASED WITHOUT AUTHORIZATION [facility] [address] [place] [id number] Draft segment with a uterine window noted. Normal tubes and ovaries bilaterally. Some omental adhesions to the anterior peritoneum. INDICATIONS: Ms. Sutton is a 41-year-old G6, P4, x4 female at 39 weeks gestation by 15 week ultrasound, who presented to complaining of worsening edema and visual changes with blurry vision. is quite complicated with polysubstance abuse including fentanyl and methamphetamines, history of prior , history of preeclampsia with HELLP syndrome and prior pregnancies with HELLP syndrome diagnosed one month ago with noncompliance. The patient had been attempted to be contacted multiple times and refused to continue her OB care until this morning. She did leave A after being diagnosed with HELLP syndrome one month ago. Please see notes for details. The patient was admitted and noted to have blood pressures in severe range 190s/100s and received labetalol with improvement in her blood pressure, not severe range. The patient did receive one oral dose of Procardia as well. The patient did develop some hypotension preoperatively and some bradycardia. She was consented for repeat low transverse delivery with tubal ligation. Risks, benefits, and alternatives were discussed in detail with the patient. The patient understands and wished to proceed with the procedure. DESCRIPTION OF PROCEDURE: The patient was taken to the operating room where a time-out was performed to confirm correct patient, correct procedure. The patient has a history of penicillin allergy and she received clindamycin 900 mg and gentamicin 5 mg/kg. Given some hypotension, decision was made to proceed with under general anesthetic to avoid worsening of hypotension. A Sosa catheter was inserted and the patient received tranexamic acid 1 g IV. General anesthesia was adequately established and a Pfannenstiel skin incision was made using a surgical scalpel through her prior Pfannenstiel incision. Incision was carried down to the fascia where the fascia was nicked in the midline and fascial incision was extended bilaterally using curved Goodman scissors. The rectus was grasped with Zeus's, elevated, and the underlying rectus muscle dissected bluntly and sharply. The rectus was divided in the midline using blunt sharp dissection. Very thin lower uterine segment was identified with the uterine window. An Rao self retractor was placed. Hysterotomy was then performed using a surgical scalpel with thick particulate meconium noted. The surgeon's hand was placed in the uterine cavity. The head elevated and delivered with the assistance of fundal pressure. No nuchal cord was identified. was vigorous and cried at delivery. Cord was doubly clamped and cut. The handed to the waiting pediatric team for further care. Cord blood was obtained for blood gases. The placenta was then expressed intact with a centrally inserted three-vessel cord. Bleeding was scant, although the uterus was somewhat boggy. The patient received Pitocin per protocol. The uterine cavity was cleared of any remaining products of conception or clot and hysterotomy was repaired using 0 Monocryl PATIENT NAME: CHERI SUTTON OPERATIVE REPORT DATE OF : 76 REPORT #: [id number] PHYSICIAN: KATT VILLALOBOS (CURTIS) DO PCP: NO PRIMARY CARE PHYSICIAN REPORT IS CONFIDENTIAL AND NOT TO BE RELEASED WITHOUT AUTHORIZATION [address] [address] Draft in two layers, the 1st being a running locked suture and the 2nd being a running imbricating suture in a vertical manner. The pelvis was irrigated and found to be hemostatic. Tisseel was applied to avoid the risk of postoperative bleeding. Attention was then to turned to tubal ligation. The uterus was exteriorized and the right fallopian tube was grasped with [place] clamps. A window was made in avascular space in the mesosalpinx and the fallopian tube was ligated using 2-0 chromic, excising approximately cm span of the fallopian tube with excellent hemostasis. The cut ends were fulgurated and noted to be hemostatic. The process was repeated on the contralateral side without complication. The pelvis was evaluated and excellent hemostasis was appreciated. The Rao self retractor was removed. Peritoneum was reapproximated, although some mild omental adhesions were noted on the anterior portion of the peritoneum. The peritoneum was reapproximated using 2-0 Vicryl in a running nonlocked manner. The rectus was irrigated and found to be hemostatic. It was loosely reapproximated using interrupted sutures of 0 Vicryl. Remainder of Tisseel was then applied to the rectus sheath. The fascia was then reapproximated using 0 Vicryl in a running nonlocked manner. Subcu was irrigated and meticulous hemostasis was appreciated with the judicious use Bovie of Bovie electrocautery. Subcu was reapproximated using 2-0 Vicryl in a running nonlocked manner. Skin was reapproximated using surgical kobe. The uterus was Crede'd for scant amount of blood. The patient did have some intraoperative hypotension and she received epinephrine and vasopressin. Intraoperative consultation with Dr. Sam, hospitalist was performed. Please see postoperative documentation for details and postoperative course. Sponge, needle, and instrument counts were correct x2 at the end of the procedure. Dr. Joseph and Dr. Scott were both present, participated in all portions of the procedure. DO LANDY Lewis/SHANAEL /[id number] Copies: PATIENT NAME: CHERI SUTTON OPERATIVE REPORT DATE OF : 76 REPORT #: [id number] PHYSICIAN: KATT VILLALOBOS) PCP: NO PRIMARY CARE PHYSICIAN REPORT IS CONFIDENTIAL AND NOT TO BE RELEASED WITHOUT AUTHORIZATION [address] [id number] Draft ~ PATIENT NAME: CHERI SUTTON OPERATIVE REPORT DATE OF : 76 REPORT #: [id number] PHYSICIAN: KATT VILLALOBOS) PCP: NO PRIMARY CARE PHYSICIAN REPORT IS CONFIDENTIAL AND NOT TO BE RELEASED WITHOUT AUTHORIZATION
--- NOTE | 2022-02-02 06:12 | PR ---
[facility] [address], [place] [address] Signed Progress Notes IP Datetime Report Generated by CPN: 02/02/2022 06:12 PROGRESS NOTES: [id number] Impression: Gest. HTN/PreEclampsia/Eclampsia Other Procedures: Continue stabilization Plan: Continue Present Management VITAL SIGNS: [id number] Vital Signs: Reviewed VS Notable Details: Severe range on admission; improved EXAM: [id number] Dilatation: 1.0 Effacement: 50 Station: -3 Contractions: rare MEMBRANES: [id number] Comments: Pt became aggitated re magnesium side effects but agrees to continue. Refusing monitoring at this time. Called to [facility]; pt had reported last dosing of methadone yesterday 20mg PO but treatment center reports last documented dosing 01/24/22 20mg PO with no recent visits since. Pt admits to smoking fentanyl last night. Continuing stabilization of BPs. FETUS A: [id number] FHR Baseline: 130 Variability: Moderate 6-25bpm Accelerations: 15X15 Decelerations: None FHR Category: Category I Comments on Fetus A: No evidence of metabolic acidosis FETUS B: [id number] Signing Physician: Katt Villalobos DO Copies: ~ *Electronically Signed* 02/02/22611 KATT VILLALOBOS (CURTIS) DO PATIENT NAME: CHERI SUTTON PROGRESS NOTE DATE OF : 76 PHYSICIAN: KATT VILLALOBOS (JD) DO RPT #: [id number] REPORT IS CONFIDENTIAL AND NOT TO BE RELEASED WITHOUT AUTHORIZATION
--- NOTE | 2022-02-02 06:20 | PR ---
[facility] [address] [facility] [place], [place] [address] Signed Progress Notes IP Datetime Report Generated by CPN: 02/02/2022 06:19 PROGRESS NOTES: [id number] Impression: Gest. HTN/PreEclampsia/Eclampsia Other Procedures: Continue stabilization Plan: Continue Present Management VITAL SIGNS: [id number] Vital Signs: Reviewed VS Notable Details: Severe range on admission; improved EXAM: [id number] Dilatation: 1.0 Effacement: 50 Station: -3 Contractions: rare MEMBRANES: [id number] Comments: Pt seen and evaluated. Discussed importance of monitoring now that BPs had stabilized. Just before walking into room patient was given Procardia 10mg PO despite normal pressures. Will monitor BPs and response closely. Pt reports side effects from Mag Sulfate are improving. FETUS A: [id number] FHR Baseline: 130 Variability: Moderate 6-25bpm Accelerations: 15X15 Decelerations: None FHR Category: Category I Comments on Fetus A: No evidence of metabolic acidosis FETUS B: [id number] Signing Physician: Katt Villalobos DO Copies: ~ *Electronically Signed* 02/02/22 0619 KATT VILLALOBOS (CURTIS) DO PATIENT NAME: CHERI SUTTON PROGRESS NOTE DATE OF : 76 PHYSICIAN: KATT VILLALOBOS) DO RPT #: [id number] REPORT IS CONFIDENTIAL AND NOT TO BE RELEASED WITHOUT AUTHORIZATION
--- NOTE | 2022-02-02 07:13 | PR ---
[facility] [facility] [address] [place], [place] [address] Signed Progress Notes IP Datetime Report Generated by CPFernando: 02/02/2022 07:13 PROGRESS NOTES: [id number] Impression: Gest. HTN/PreEclampsia/Eclampsia Other Procedures: Continue stabilization Plan: Continue Present Management VITAL SIGNS: [id number] Vital Signs: Reviewed VS Notable Details: Severe range on admission; improved EXAM: [id number] Dilatation: 1.0 Effacement: 50 Station: -3 Contractions: rare MEMBRANES: [id number] Comments: Pt w/ hypotension noted. Pt did receive one dose of ephedrine per anesthesia w/ improvement of BP, but now patient more hypotensive. FHR 100 w/ minimal variability. Careful IV fluid recussitation and ephedrine in coordination w/ anesthesia. Reviewing options for perioperative anesthesia and will monitor closely. FETUS A: [id number] FHR Baseline: 130 Variability: Moderate 6-25bpm Accelerations: 15X15 Decelerations: None FHR Category: Category I Comments on Fetus A: No evidence of metabolic acidosis FETUS B: [id number] Signing Physician: Katt Villalobos DO Copies: ~ *Electronically Signed* 02/02/22712 KATT VILLALOBOS (CURTIS) DO PATIENT NAME: CHERI SUTTON PROGRESS NOTE DATE OF : 76 PHYSICIAN: KATT VILLALOBOS) DO RPT #: [id number] REPORT IS CONFIDENTIAL AND NOT TO BE RELEASED WITHOUT AUTHORIZATION
--- NOTE | 2022-02-02 09:05 | NUR ---
report recieved FROM MIKE RN (PACU). PATIENT ADMITTED TO ROOM 128 FROM PACU/FBC. PATIENT IS POSTPATRTUM C SECTION. DX OF HELP. DURING DELIVERY PATIENT WAS HYPOTENSIVE, HYPOXIA, BRADYCARDIC. PLATLETE CT IS 90. DR. ZARAGOZA, DR. NORMAN, SHASHANK LINDA AND MANY STAFF IN ROOM. PATIENT IS INTUBATED WITH SIZE 6.5 ETT, TAPED 22 AT LIP. SETTING TV-470, FIO2-60, AC-17, PEEP-5, PIP-19, ETCOT-29. MARKET DEVELOPMENT SPECIALIST TO PLACE ART LINE. DR. SANCHES PLAN TO PLACE CVA. CURRENTLY PATIENT IS ON LEVOPHED GTT AT 2 MCG/MIN, EPI GTT AT 4 MCG/MIN, IVF LR WITH PITOCIN AT BOLUS. PROPOFOL GTT INFUSING NOW AT 50 MCG/KG/MIN. GARCIA CATH PATENT. WRIST RESTAINTS APPLIED. UNDAL MASSAGE TO BE DONE PER PROTOCOL. MINIMAL VAGINAL BLEEDING NOTED.
--- NOTE | 2022-02-02 09:15 | NUR ---
PLAN IS TO TRANSFER TO [facility] WHEN BED SPACE AVAILABLE. CVC PLACED BY DR. SANCHES TO [facility]. CXR DONE. OKAY TO USE LINE GIVEN BY DR. SANCHES. ART LINE PLACED BY Bela LINDA [employer] FOR[employer] SENIOR SERGEANT TO RIGHT RADIAL ART AT 0900. LABS DRAWN FRON ART LINE. EPI GTT INCREASED TO 3 MCG/MIN.
--- NOTE | 2022-02-02 09:20 | NUR ---
PRBC'S INFUSING. HEPARIN GTT INFUSING AT 1300 UNITS HR. LEVOPHED/EPI/NS WARM FLUIDS/IV VANC/PROPOFOL INFUSING, SEE EMAR FOR TITRATION. MINIMAL BLEEDING NOTED VAGINALLY.DRESSING TO C SECTION SITE INTACT.
--- NOTE | 2022-02-02 10:00 | NUR ---
02/02/22 1000 Bridget Hobson 0831 PT ARRIVED IN CCU INTUBATED. 0833 PLACED ON VENTILATOR. LR WITH 20U PITOCIN RUNNING WIDE OPEN IN L HAND. SEDATION GIVEN BY ANESTHESIA. 0835 PADS PLACED AND CODE CART AT BEDSIDE. VASOPRESSIN TURNED OFF. EPI DRIP STARTED AT 2MCG/MIN AND NOREPI DRIP AT 6MCG/MIN INFUSING ON PUMP. 0840 DURING FUNDAL MASSAGE, PT MOVING ARMS AND LIFTING HEAD. SOFT RESTRAINTS PLACED BILAT TO WRISTS. 0845 PROPOFOL DRIP STARTED. PT PULLING UP LEGS. 0850 PROPOFOL 5ML BOLUS GIVEN. NG TUBE PLACED. [address] SANCHES IN ROOM TO PLACE CENTRAL LINE. ANESTHESIA AT BEDSIDE STARTING ART LINE. 0900 CENTRAL LINE AND ART LINE DONE. 0904 BLOOD DRAWN FROM ART LINE AND GIVEN TO LAB. 0905 REPORT GIVEN TO CCU RN. MULTIPLE PEOPLE IN ROOM HELPING.
--- NOTE | 2022-02-02 10:00 | NUR ---
UA SENT TO LAB.
--- NOTE | 2022-02-02 10:15 | NUR ---
FLIGHT TEAM HERE. REPORT TO THEM.
--- NOTE | 2022-02-02 10:20 | NUR ---
LF HERE. CALLED TRANSFER CENTER WHO REPORTS THEY WILL "CALL US BACK SHORTLY".
--- NOTE | 2022-02-02 10:55 | NUR ---
UPON TRANSFER TO [facility], PATEINT REMAINS INTABATED, SETTINGS TV-470,AC-17,PEEP-5, FIO2-40. ETCO2-44, PIP-20. IV MEDICATIONS INFUSING, PROPOFOL AT 65 MG/KG/MIN TO , BLOOD TO RIJ, LEVOPHED AT 4 MG/MIN, EPI-4 MG/MIN, HEPARIN GTT AT 1300 UNITS/HR. CEFAPIME TO [facility], VANCO RAC. GARCIA CATH PATENT.
--- NOTE | 2022-02-02 11:00 | NUR ---
FLIGHT TEAM HUNG 2ND UNIT OF PRBC'S. VERSED GTT AND 2 BOTTLES OF PROPOFOL SENT WITH FLIGHT TEAM.
--- NOTE | 2022-02-02 11:09 | NUR ---
TO [facility] TO [facility] THEN FLYING BY FIXED WING TO [facility].
--- NOTE | 2022-02-02 12:00 | NUR ---
REPORT TO [facility] (GARETT ESPARZA).
--- NOTE | 2022-02-02 12:35 | CONS ---
[facility] [address] [facility] [place], [place] [address] Signed DATE OF CONSULTATION: REQUESTING PHYSICIAN: Dr. Villalobos. PROBLEM: Need for central venous access. HISTORY OF PRESENT ILLNESS: This 41-year-old [place] woman who gave by section and suffers from the HELLP syndrome. She was hypotensive and required intubation. Her platelet count is 90,000. Transfusion was anticipated for hemoglobin of 8.3. The baby is reported as to be healthy and without problem. The patient is intubated at this time and request is made for central venous access for administration of pressor agents. She is currently on norepinephrine drip and previously epinephrine as well. PAST MEDICAL HISTORY: Uncertain to me other than her recent issue of related to preeclampsia and eclampsia. PHYSICAL EXAMINATION: GENERAL: She is completely sedated and nonresponsive on ventilations. Her systolic pressure is 89 on pressor agent including norepinephrine and recently epinephrine. Some urine is noted in the Sosa catheter. NECK: Nondeformed inside the clavicles. ABDOMEN: Obese, but generally soft. ASSESSMENT: Emergency placement of central venous catheter for pressor agent and other interventions including blood draws has been requested. Administrative consent is required in this situation for central venous catheterization. The risks of bleeding, infection, pneumothorax, and other unforeseen complications are well acknowledged; given her relatively low platelet count of 90,000, a right internal jugular approach would be most appropriate. Gavin Sanches MD Electronically Signed By: GAVIN SANCHES MD 02/02/22 1235 PATIENT NAME: CHERI SUTTON CONSULTATION DATE OF : 76 REPORT #: [id number] PHYSICIAN: GAVIN SANCHES MD PCP: NO PRIMARY CARE PHYSICIAN REPORT IS CONFIDENTIAL AND NOT TO BE RELEASED WITHOUT AUTHORIZATION [facility] [address] [place], [place] [address] Signed /[facility] /[id number] cc: Dr. Villalobos Copies: ~ Electronically Signed By: GAVIN SANCHES MD 02/02/22 1235 PATIENT NAME: CHERI SUTTON CONSULTATION DATE OF : 76 REPORT #: [id number] PHYSICIAN: GAVIN SANCHES MD PCP: NO PRIMARY CARE PHYSICIAN REPORT IS CONFIDENTIAL AND NOT TO BE RELEASED WITHOUT AUTHORIZATION
--- NOTE | 2022-02-02 12:35 | OR ---
[facility] [address] [place], [place] [address] Signed DATE OF OPERATION: 02/02/2022 SURGEON: Gavin Sanches MD PREOPERATIVE DIAGNOSES: 1. Critical illness, requirement for central venous catheterization. 2. HELLP syndrome, , thrombocytopenic (90,000), anemic (hemoglobin 8.4). POSTOPERATIVE DIAGNOSES: 1. Critical illness, requirement for central venous catheterization. 2. HELLP syndrome, , thrombocytopenic (90,000), anemic (hemoglobin 8.4). PROCEDURE: Right internal jugular central venous catheterization (Arrow blue tip central venous catheter). ANESTHESIA: 1% lidocaine. DESCRIPTION OF PROCEDURE: In the mild Trendelenburg position, the patient's head was turned to the left. She was fully ventilated. The upper neck and upper chest were prepared with chlorhexidine solution as provided by the Arrow central venous catheter kit and draped sterilely with the clear drapes. The blue Arrow triple-lumen catheter was prepared. applied and heparinized saline flushed through the catheter. 1% lidocaine was injected over the right sternocleidomastoid muscle inferior to the external jugular vein. On single pass using Seldinger technique, the right internal jugular vein was easily accessed showing dark nonpulsatile blood. A flexible J-wire was passed down the needle into the right internal jugular vein. Some ectopy occurred, which was short lived. The site was incised with an 11 blade and dilated with the enclosed blue dilator and the Arrow triple-lumen blue catheter passed over the wire. The wire was removed from the distal port. Aspiration showed dark nonpulsatile blood. was reapplied. The catheter was withdrawn a few cm and secured with enclosed collar device and enclosed suture. A postprocedure chest x-ray is pending. A clear OpSite was applied to the site. There were no complications. Blood loss was minimal. Electronically Signed By: GAVIN SANCHES MD 02/02/22 1235 PATIENT NAME: CHERI SUTTON OPERATIVE REPORT DATE OF : 76 REPORT #: [id number] PHYSICIAN: GAVIN SANCHES MD PCP: NO PRIMARY CARE PHYSICIAN REPORT IS CONFIDENTIAL AND NOT TO BE RELEASED WITHOUT AUTHORIZATION [address] [address] Signed MD ERIN Naik/MODL /[id number] cc: Dr. Parks Copies: ~ Electronically Signed By: GAVIN SANCHES MD 02/02/22 1235 PATIENT NAME: CHERI SUTTON OPERATIVE REPORT DATE OF : 76 REPORT #: [id number] PHYSICIAN: GAVIN SANCHES MD PCP: NO PRIMARY CARE PHYSICIAN REPORT IS CONFIDENTIAL AND NOT TO BE RELEASED WITHOUT AUTHORIZATION
--- NOTE | 2022-02-02 13:00 | NUR ---
ASSESSMENT WAS DONE ON ADMIT TO CCU, WAS LATE CHARTED DUE TO SEVERE ILLNESS OF THE PATIENT.
--- NOTE | 2022-02-02 13:10 | NUR ---
[facility] TEAM CALLED FOR PT IN F[facility]. [facility] HERE TO TRANSPORT PT. BABY WILL REMAIN IN NURSERY. WILL FOLLOW NEEDED
== END 2022-02-02 11:06 | disposition short-term general hospital (02) | DRG 783 ==
LOC: FBCO 04:30 → FBC 04:31 → CCU 04:31
PROVIDERS: ADMIT Obstetrics & Gynecology; ATTEND Obstetrics & Gynecology
PROC: 3E033XZ Introduction of Vasopressor into Peripheral Vein, Percutaneous Approach (ICD-10-PCS; 2022-02-02)
PROC: 0BH17EZ Insertion of Endotracheal Airway into Trachea, Via Natural or Artificial Opening (ICD-10-PCS; 2022-02-02)
PROC: 5A1935Z Respiratory Ventilation, Less than 24 Consecutive Hours (ICD-10-PCS; 2022-02-02)
PROC: 02H633Z Insertion of Infusion Device into Right Atrium, Percutaneous Approach (ICD-10-PCS; 2022-02-02)
PROC: 10D00Z1 Extraction of Products of Conception, Low, Open Approach (ICD-10-PCS; principal; 2022-02-02 09:15)
PROC: 0UB70ZZ Excision of Bilateral Fallopian Tubes, Open Approach (ICD-10-PCS; 2022-02-02 09:15)
DX: O14.24 HELLP syndrome, complicating childbirth (principal); I26.99 Other pulmonary embolism without acute cor pulmonale; O99.12 Other diseases of the blood and blood-forming organs and certain disorders involving the immune mechanism complicating childbirth; R65.10 Systemic inflammatory response syndrome (SIRS) of non-infectious origin without acute organ dysfunction; Z3A.39 39 weeks gestation of pregnancy; Z20.822 Contact with and (suspected) exposure to COVID-19; Z67.10 Type A blood, Rh positive; Z37.0 Single live birth; D69.6 Thrombocytopenia, unspecified; O34.211 Maternal care for low transverse scar from previous cesarean delivery; I95.89 Other hypotension; T68.XXXA Hypothermia, initial encounter; F19.10 Other psychoactive substance abuse, uncomplicated; O99.324 Drug use complicating childbirth; F11.10 Opioid abuse, uncomplicated; Z88.0 Allergy status to penicillin; Z88.5 Allergy status to narcotic agent; Z91.041 Radiographic dye allergy status; Z91.199 Patient's noncompliance with other medical treatment and regimen due to unspecified reason
CPT/HCPCS: 36415; 71045; 71260; 80051; 80053; 82803; 83605; 83735; 84484; 85025; 85060; 85384; 85610; 85730; 86850; 86900; 86901; 86922; 87502; J0171; J0330; J0692; J1580; J1644; J1885; J2250; J2370; J2405; J2590; J2704; J3370; J3475; J3490; J7060; J7121; Q9967; U0003